=== PATIENT | female | born 1995 | race Caucasian/White ===

== ENCOUNTER 2019-02-05 14:27 | Emergency (ER) | payer OTHER ==
[~2019-02-05] VITALS: Ht 175.3 cm; Wt 89.3 kg
[2019-02-05] MEDS ORDERED: IBUP-1114 PO (14:42)
[2019-02-05] MEDS ORDERED: NAPROXEN 250 MG TAB PO ONE (18:00)
[2019-02-06 00:33] VITALS: BP 155/88
--- NOTE | 2019-02-06 09:07 | REP ---
Pelvic sonography: History: Rule out ovarian torsion. Pelvic pain. Findings: Transabdominal and transvaginal scanning are performed. Uterine dimensions are normal at 7.1 x 2.6 x 4.5 cm. Uterus is anteverted. No focal uterine mass is seen. An IUD is seen in the endometrium in good position. Endometrium measures 0.4 cm in thickness. No free fluid is noted. Normal ovaries are seen bilaterally. Right ovary dimensions are 3.1 x 1.9 x 1.8 cm. Left ovary measures 2.4 x 1.4 x 1.4 cm. Normal Doppler flow is seen in both ovaries. Resistive index on the left is 0.61 and that on the right is 0.51. Impression: Normal pelvic sonography. Electronically Signed by Aashish López MD 02/06/2019 08:58 A
== END 2019-02-06 00:35 | disposition home or self-care (01) ==
LOC: M ED 14:27
DX: N94.6 Dysmenorrhea, unspecified (principal); I10 Essential (primary) hypertension; R51 Headache; Z97.5 Presence of (intrauterine) contraceptive device; Z88.1 Allergy status to other antibiotic agents